=== PATIENT | male | born 1985 | race Two or more races ===

== ENCOUNTER 2017-05-16 14:28 | Emergency (ER) | payer BC, SELFPAY ==
[2017-05-16] MEDS ORDERED: ULTRAM50 M1 PO (16:07)
[2017-05-16] MEDS ORDERED: HYDROCODON-ACE1 EA16 PO (16:08)
[2017-05-16] MEDS ORDERED: IBUPROFEN600 M1 PO (17:41)
== END 2017-05-16 17:46 ==
LOC: EDMED 14:28
DX: M54.9 Dorsalgia, unspecified (principal); Z98.890 Other specified postprocedural states; Z79.899 Other long term (current) drug therapy
CPT/HCPCS: J1885